=== PATIENT | female | born 2005 | race Caucasian/White ===

== ENCOUNTER 2023-09-12 14:06 | Emergency (ER) | payer BC, SELFPAY ==
[2023-09-12 14:10] VITALS: BP 120/85; PULSE 87; RESP 18; TEMP 36.1; O2SAT 98; BMI 39.2
[2023-09-12 14:27] LABS: Bilirubin Urine NEGATIVE (NEGATIVE); Blood Urine NEGATIVE (NEGATIVE); Glucose Urine UA NEGATIVE (NEGATIVE); Ketones Urine NEGATIVE (NEGATIVE); Leukocyte Esterase Urine NEGATIVE (NEGATIVE); Nitrite Urine NEGATIVE (NEGATIVE); Protein Urine NEGATIVE (NEG/TRACE); Urobilinogen Urine 0.2 EU/dL (0.2-1.0); pH Urine 7.5 (5.0-9.0)
[2023-09-12 14:30] LABS: Clarity Urine SLIGHTLY CLOUDY (CLEAR); Color Urine DK YELLOW (YELLOW)
[2023-09-12 14:33] LABS: Bacteria Urine NONE SEEN #/HPF (NONE SEEN); Mucus Urine NONE SEEN (NONE SEEN); RBC Urine NONE SEEN #/HPF (0-2); WBC Urine NONE SEEN #/HPF (NONE SEEN)
[2023-09-12 14:34] LABS: Amorphous Sediment Urine MODERATE; Cast Seen? NONE SEEN #/LPF (NONE SEEN); Crystals Seen? None Seen #/HPF (None Seen); Squamous Epithelial Cell Urine NONE SEEN #/LPF (NONE/RARE)
--- NOTE | 2023-09-12 14:46 | ED.FEMALEGU1 ---
HPI - Female Genitourinary General Chief complaint: Urogenital-Female Stated complaint: UTI SYMPTOMS Time Seen by Provider: 09/12/23 14:09 Source: patient Mode of arrival: walk-in Limitations: no limitations History of Present Illness HPI Narrative: 18-year-old female presents with dysuria and urinary frequency for the past 2 days. She states that she feels some minimal lower abdominal cramping. She had a bowel movement today, but was less than normal. Denies abnormal vaginal discharge or risk of STDs. Denies fever, back pain, n/v/d Related Data Allergies Allergy/AdvReac Type Severity Reaction Status Date / Time amoxicillin Allergy Unknown Verified 09/12/23 14:10 Review of Systems ROS Status of ROS 10 or more systems reviewed and unremarkable except as noted in history and below Exam Narrative Exam Narrative: General: alert, no distress, talking in full an complete sentences skin: warm, dry, intact head: normocephalic, atraumatic eyes: EOMI nose: nares patent neck: supple, trachea midline respiratory: non-labored extremities: FROM x 4, strength +5/5 abd: soft, NT, no guarding or rigidity, no peritoneal signs, normal BS neuro: A&Ox3 psych: appropriate mood and affect, cooperative Constitutional Vital Signs, click to edit/add: Last Vital Signs Temp 97 F L 09/12/23 14:10 Pulse 87 09/12/23 14:10 Resp 18 09/12/23 14:10 BP 120/85 09/12/23 14:10 Pulse Ox 98 09/12/23 14:10 O2 Del Method Room Air 09/12/23 14:10 Course Vital Signs Vital signs: Vital Signs Temperature 97 F L 09/12/23 14:10 Pulse Rate 87 09/12/23 14:10 Respiratory Rate 18 09/12/23 14:10 Blood Pressure 120/85 09/12/23 14:10 Pulse Oximetry 98 09/12/23 14:10 Oxygen Delivery Method Room Air 09/12/23 14:10 Temperature 97 F L 09/12/23 14:10 Pulse Rate 87 09/12/23 14:10 Respiratory Rate 18 09/12/23 14:10 Blood Pressure 120/85 09/12/23 14:10 Pulse Oximetry 98 09/12/23 14:10 Oxygen Delivery Method Room Air 09/12/23 14:10 MDM - Female Genitourinary MDM Narrative Medical decision making narrative: UA negative for UTI. Urine hCG negative. I offered an x-ray of her abdomen to see if she was constipated as this may be causing symptoms and she declines. She is instructed to increase fiber content to try and have a better bowel movement. F/u with PCP. afebrile, not tachypneic, not tachycardic, tolerating p.o., not hypoxic, non toxic appearing and ambulating at baseline and hemodynamically stable to be d/c. answered all questions. pt in agreement with tx. educated when to return to ER. Lab Data Attestation: I reviewed the patient's lab results. Labs: Lab Results 09/12/23 09/12/23 Range/Units 14:15 14:18 Urine Color Dk yellow (YELLOW) Urine Clarity Slightly cloudy A (CLEAR) Urine pH 7.5 (5.0-9.0) Ur Specific [place] 1.020 (1.005-1.025) Urine Protein Negative (NEG/TRACE) mg/dL Urine Glucose (UA) Negative (NEGATIVE) mg/dL Urine Ketones Negative (NEGATIVE) mg/dL Urine Occult Blood Negative (NEGATIVE) Urine Nitrite Negative (NEGATIVE) Urine Bilirubin Negative (NEGATIVE) Urine Urobilinogen 0.2 (0.2-1.0) EU/dL Ur Leukocyte Esterase Negative (NEGATIVE) Urine RBC None seen (0-2) #/HPF Urine WBC None seen (NONE SEEN) #/HPF Ur Squamous Epith Cells None seen (NONE/RARE) #/LPF Urine Crystals None seen (None Seen) #/HPF Amorphous Sediment Moderate Urine Bacteria None seen (NONE SEEN) #/HPF Urine Casts None seen (NONE SEEN) #/LPF Urine Mucus None seen (NONE SEEN) Urine HCG, Qual Negative (NEGATIVE) Discharge Plan Discharge Chief Complaint: Urogenital-Female Clinical Impression: Dysuria Patient Disposition: Home, Self-Care Time of Disposition Decision: 14:50 Condition: Good Mode of Transportation: Private Vehicle Instructions: Dysuria (ED) Stand Alone Forms: Portal Instructions Referrals: Physician,Non-Staff, [Primary Care Provider] - 1 week
[2023-09-12 14:48] LABS: HCG Qualitative Urine* NEGATIVE (NEGATIVE)
== END 2023-09-12 14:59 | disposition home or self-care (01) ==
PROVIDERS: Physician Assistant; Emergency Provider Emergency Medicine
DX: R30.0 Dysuria (principal)
CPT/HCPCS: 81001; 84703; 99283

== ENCOUNTER 2023-09-14 21:54 | Emergency (ER) | payer BC, SELFPAY ==
[2023-09-14 21:56] VITALS: BP 140/87; PULSE 100; RESP 18; TEMP 36.6; O2SAT 97; BMI 39.2
--- NOTE | 2023-09-14 22:13 | CT_ITS ---
[facility] [id number] Patient Name: SIENNA OSCAR MRN: [id number] date: 2005 Sex: F Assigned Patient Location: ER Current Patient Location: ER Accession/Order Number: [id number] Exam Date: 09/14/2023 22:41 Report Date: 09/14/2023 23:04 At the request of: BRIONNA HOPPER Procedure: CT abdomen pelvis wo con EXAM: CT abdomen pelvis wo con HISTORY: right flank pain COMPARISON: None. TECHNIQUE: CT abdomen/pelvis without contrast. All CT scans at this facility use dose modulation, iterative reconstruction, and/or weight based dosing when appropriate to reduce radiation dose to as low as reasonably achievable. FINDINGS: Lung bases: Clear. ABDOMEN: Limited noncontrast evaluation of the abdomen and pelvis. Liver: Normal. Gallbladder/biliary: Hyperdense debris within the gallbladder lumen may represent sludge or small stones. Pancreas: Normal. Spleen: Normal. Adrenals: Normal. Kidneys, ureters and urinary bladder: Normal. No nephrolithiasis. Pelvis: Normal size of the uterus. No adnexal masses. Vasculature: Normal caliber of the abdominal aorta. Hollow viscera/retroperitoneum: Normal appearance of the gastroesophageal junction. The small bowel is normal caliber. The appendix is normal. No focal colonic wall thickening. No mesenteric or pelvic lymphadenopathy. No intra-abdominal free fluid or free air. Musculoskeletal/soft tissues: Soft tissues are within normal limits. No acute fracture or aggressive osseous abnormality. CT/CT abdomen pelvis wo con IMPRESSION: No acute intra-abdominal or pelvic abnormality. Electronically authenticated by: LUIGI MARRERO Date: 09/14/2023 23:04
--- NOTE | 2023-09-14 22:14 | ED.FEMALEGU1 ---
HPI - Female Genitourinary General Chief complaint: Urogenital-Female Stated complaint: UTI Time Seen by Provider: 09/14/23 22:04 Source: patient Mode of arrival: walk-in Limitations: no limitations History of Present Illness HPI Narrative: right flank pain. past history of kidney infection. concern she may have an infection. No fever or nausea. No hematuria Related Data Allergies Allergy/AdvReac Type Severity Reaction Status Date / Time amoxicillin Allergy Unknown Verified 09/14/23 22:00 Review of Systems ROS Status of ROS 10 or more systems reviewed and unremarkable except as noted in history and below [facility] Social History Smoking status: Current every day smoker Exam Constitutional Vital Signs, click to edit/add: Last Vital Signs Temp 98 F 09/14/23 21:56 Pulse 100 H 09/14/23 21:56 Resp 18 09/14/23 21:56 BP 140/87 09/14/23 21:56 Pulse Ox 97 09/14/23 21:56 O2 Del Method Room Air 09/14/23 21:56 Common normals: no apparent distress, oriented x3, no limitations, healthy appearing, alert and well nourished Eye Common normals: PERRL and EOMs intact bilaterally Respiratory Common normals: normal respiratory effort, no retractions and no use of accessory muscles Cardio Common normals: regular rate, regular rhythm, S1 normal heart sound and S2 normal heart sound GI Common normals: Normal to inspection, nondistended, normoactive bowel sounds present, soft to palpation and non-tender Back & Pelvis Common normals: no CVA tenderness Extremity Common normals: normal to inspection and full ROM Neuro Common normals: oriented x3, CN's II-XII intact bilaterally, moves all extremities, no focal motor deficits and no sensory deficits noted Psych Appearance: grossly normal Course Vital Signs Vital signs: Vital Signs Temperature 98 F 09/14/23 21:56 Pulse Rate 100 H 09/14/23 21:56 Respiratory Rate 18 09/14/23 21:56 Blood Pressure 140/87 09/14/23 21:56 Pulse Oximetry 97 09/14/23 21:56 Oxygen Delivery Method Room Air 09/14/23 21:56 Temperature 98 F 09/14/23 21:56 Pulse Rate 100 H 09/14/23 21:56 Respiratory Rate 18 09/14/23 21:56 Blood Pressure 140/87 09/14/23 21:56 Pulse Oximetry 97 09/14/23 21:56 Oxygen Delivery Method Room Air 09/14/23 21:56 MDM - Female Genitourinary MDM Narrative Medical decision making narrative: patient presents complaining of right flank pain concerned about possible stone. Was seen a couple of days ago concerned about UTI and UA was neg. Denies dysuria or hematuria. no fever or nausea. CT of the abd/pelvis neg for acute findings. Labs unremarkable. UA not performed tonight because she has been taking Pyridium. Urine cx sent. 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 % (Auto) 5.6 (1.7-12.0) % Eos % (Auto) 0.2 L (0.9-7.0) % Baso % (Auto) 0.3 (0.2-2.0) % Neut # (Auto) 6.4 (1.4-6.5) 10^3/uL Lymph # (Auto) 2.4 (1.2-3.8) 10^3/uL [place] # (Auto) 0.5 (0.3-0.8) 10^3/uL Eos # (Auto) 0.0 (0.0-0.7) 10^3/uL Baso # (Auto) 0.0 (0.0-0.1) 10^3/uL Abs Immat Gran (auto) 0.02 (0.00-0.03) 10^3/uL Imm/Tot Granulo (auto) 0.2 (0.0-0.5) % Sodium 138 (136-145) mmol/L Potassium 3.4 L (3.5-5.1) mmol/L Chloride 101 (98-107) mmol/L Carbon Dioxide 27.8 (21.0-32.0) mmol/L Anion Gap 12.6 BUN 16.0 (7.0-18.0) mg/dL Creatinine 0.91 (0.55-1.02) mg/dL Est GFR ( Amer) >60 (>=60) Est GFR (Non-Af Amer) >60 (>=60) BUN/Creatinine Ratio 17.6 Glucose 113 H (74-106) mg/dL Lactate 0.8 (0.4-2.0) mmol/L Calcium 9.1 (8.5-10.1) mg/dL Total Bilirubin 0.4 (0.2-1.0) mg/dL AST 11 L (15-37) U/L ALT 17 (14-59) U/L Alkaline Phosphatase 82 (46-116) U/L Total Protein 7.7 (6.4-8.2) g/dL Albumin 4.2 (3.4-5.0) g/dL Globulin 3.5 g/dL Albumin/Globulin Ratio 1.2 Lipase 48.0 (16.0-77.0) U/L Serum HCG, Qual Negative (NEGATIVE) Discharge Plan Discharge Chief Complaint: Urogenital-Female Clinical Impression: Acute flank pain Patient Disposition: Home, Self-Care Instructions: Flank Pain (ED) Additional Instructions: follow up with your soil technician as discussed Stand Alone Forms: Portal Instructions Referrals: Physician,Non-Staff, MD [Primary Care Provider] - 1 week
[2023-09-14 22:29] LABS: Basophils Percent Auto 0.3 % (0.2-2.0); Eosinophils Percent Auto 0.2 % (0.9-7.0); Hematocrit 42.9 % (36.0-48.0); Hemoglobin 13.5 g/dL (12.0-16.0); Immature Granulocytes Abs Auto 0.02 10^3/uL (0.00-0.03); Immature Granulocytes Pct Auto 0.2 % (0.0-0.5); Lymphocytes Absolute Auto 2.4 10^3/uL (1.2-3.8); Lymphocytes Percent Auto 25.2 % (20.5-60.0); Mean Corpuscular HGB Conc 31.5 g/dL (29.9-35.2); Mean Corpuscular Hemoglobin 26.6 pg (26.7-34.0); Mean Corpuscular Volume 84.4 fL (81.0-99.0); Mean Platelet Volume 11.2 fL (9.5-13.5); Monocytes Absolute Auto 0.5 10^3/uL (0.3-0.8); Monocytes Percent Auto 5.6 % (1.7-12.0); Neutrophils Absolute Auto 6.4 10^3/uL (1.4-6.5); Neutrophils Percent Auto 68.5 % (43.0-75.0); Platelet Count 324 10^3/uL (150-450); Red Blood Count 5.08 10^6/uL (4.20-5.40); White Blood Count 9.4 10^3/uL (4.0-11.0)
[2023-09-14] MEDS: 0.9 % SODIUM CHLORIDE 1,000 ML 999 ML IV (22:30)
[2023-09-14 22:46] LABS: HCG Qualitative NEGATIVE (NEGATIVE)
[2023-09-14 22:47] LABS: Alanine Aminotransferase 17 U/L (14-59); Albumin Globulin Ratio 1.2; Albumin Level 4.2 g/dL (3.4-5.0); Alkaline Phosphatase 82 U/L (46-116); Anion Gap 12.6; Aspartate Amino Transferase 11 U/L (15-37); BUN Creatinine Ratio 17.6; Bilirubin Total 0.4 mg/dL (0.2-1.0); Calcium 9.1 mg/dL (8.5-10.1); Carbon Dioxide 27.8 mmol/L (21.0-32.0); Chloride 101 mmol/L (98-107); Estimated GFR (African America >60 (>=60); Estimated GFR (Non-African Ame >60 (>=60); Globulin 3.5 g/dL; Glucose 113 mg/dL (74-106); Potassium 3.4 mmol/L (3.5-5.1); Sodium 138 mmol/L (136-145); Total Protein 7.7 g/dL (6.4-8.2)
[2023-09-14 23:52] LABS: Lactate/Lactic Acid 0.8 mmol/L (0.4-2.0)
== END 2023-09-15 00:42 | disposition home or self-care (01) ==
PROVIDERS: Emergency Provider Internal Medicine
DX: R10.9 Unspecified abdominal pain (principal); F17.210 Nicotine dependence, cigarettes, uncomplicated
CPT/HCPCS: 36415; 74176; 80053; 83605; 83690; 84703; 85025; 87086; 87186; 99284